=== PATIENT | female | born 1965 | race Caucasian/White ===

== ENCOUNTER 2021-06-22 09:25 | Outpatient (CLI) | payer BC | END 2021-06-22 09:26 | disposition home or self-care (01) | LOC: CSHMAMMO 09:25 | PROVIDERS: ATTEND Family Medicine | DX: Z12.31 Encounter for screening mammogram for malignant neoplasm of breast (principal); Z85.43 Personal history of malignant neoplasm of ovary; Z85.828 Personal history of other malignant neoplasm of skin; Z85.72 Personal history of non-Hodgkin lymphomas | CPT/HCPCS: 77063; 77067 ==

== ENCOUNTER 2023-09-27 15:28 | Outpatient (CLI) | payer BC | END 2023-09-27 15:29 | disposition home or self-care (01) | LOC: CSHMAMMO 15:28 | PROVIDERS: ATTEND Family Medicine | DX: Z12.31 Encounter for screening mammogram for malignant neoplasm of breast (principal); Z85.41 Personal history of malignant neoplasm of cervix uteri; Z85.43 Personal history of malignant neoplasm of ovary; Z85.828 Personal history of other malignant neoplasm of skin; Z85.72 Personal history of non-Hodgkin lymphomas | CPT/HCPCS: 77063; 77067 ==